=== PATIENT | female | born 1955 | race Caucasian/White ===

== ENCOUNTER → 2016-06-25 | Outpatient (CLI) | payer OTHER ==
[~2016-06-25] MED LIST: CHOL200010 PO; FLUO10CA48 PO; OPTIRAY 320 IV PRN; SYMIN160 INH; TIOTCAP INH; [UNRECOGNIZED DRUG - CODE] PO
--- NOTE | 2016-06-25 07:31 | DIAGNOSTIC IMAGING REPORT ---
CT OF THE CHEST WITH IV CONTRAST CLINICAL HISTORY: Lung carcinoma COMPARISON STUDY: 02/07/2016 TECHNIQUE: Following the IV administration of 91 mL of Optiray-320, CT of the thorax was performed from the thoracic inlet to the lung bases. Images are reviewed in the axial, sagittal, and coronal planes. IV contrast was administered without complication. CT DOSE: 225.54 mGy.cm FINDINGS: Thyroid: Imaged portions of the thyroid gland are normal in appearance. Thoracic aorta: The thoracic aorta is normal in course and caliber, noting standard 3-vessel arch anatomy. No aneurysm or dissection is seen. Pulmonary vasculature: The pulmonary trunk is normal in caliber. There are no central filling defects identified to suggest pulmonary embolus. Note that this examination was not protocoled for the evaluation of pulmonary emboli. HEART: The heart is normal in size and configuration, without pericardial effusion. Lungs and pleural spaces: There is severe pulmonary emphysema. There are postsurgical changes of a left upper lobectomy. Fiducial markings are again evident within the right upper lobe. There is an adjacent area of scar shaped nodularity measuring 28 x 8 mm. This previously measured 26 x 7 mm. There is a stable area of presumed atelectasis at the left lung base. Mediastinum: There is no mediastinal lymphadenopathy. Chante: Clear. Axilla: Clear. Upper abdomen: There is a 9 mm left adrenal gland nodule, likely representing an adenoma. Skeletal structures: There are no lytic or blastic osseous lesions. IMPRESSION: 1. Stable postsurgical changes of the left 2. Severe emphysema 3. No evidence of pathologic adenopathy 4. Persistent area of right upper lobe nodularity adjacent to fiducial markings. This currently measures 28 x 8 mm. This previously measured 26 x 7 mm. Electronically signed by: Lamonte Lyles M.D. 06/25/2016 7:29 AM Dictated Date/Time: 06/25/2016 7:23 AM
== END | disposition home or self-care (01) ==
LOC: C.CTS 06:33
PROVIDERS: ATTEND Internal Medicine Pulmonary Disease
DX: C34.90 Malignant neoplasm of unspecified part of unspecified bronchus or lung (principal); J43.9 Emphysema, unspecified

== ENCOUNTER → 2016-10-10 | Outpatient (CLI) | payer OTHER ==
[~2016-10-10] MED LIST changes: -OPTIRAY 320 IV PRN
--- NOTE | 2016-10-10 11:02 | DIAGNOSTIC IMAGING REPORT ---
CT OF THE CHEST WITHOUT IV CONTRAST CLINICAL HISTORY: Adenocarcinoma of lung. COMPARISON STUDY: Chest CT June 25, 2016 and PET/CT February 28, 2016. CT DOSE: 183.01 mGy.cm TECHNIQUE: Axial images of the chest were obtained without IV contrast. Images were reviewed in the axial, sagittal, and coronal planes. IV contrast was not administered for this examination. FINDINGS: No enlarged axillary, mediastinal or hilar lymph nodes are present. There are stable postoperative findings within the left hemithorax. No pneumothorax or pleural effusion is present. Size the heart is normal. There is no pericardial effusion. Severe emphysema is again noted. A 2.8 x 0.8 cm irregular right apical opacity is similar to exam of June 25, 2016. There are adjacent fiducial markers. The appearance of the chest is unchanged. There are no suspicious osseous lesions. A 1 cm low-attenuation left adrenal nodule is unchanged and shown to represent an adenoma on prior studies. There is fatty infiltration within the liver. A sebaceous cyst within the lower back is noted. IMPRESSION: 1. No significant change in the right apical irregular opacity since prior exam with adjacent fiducial markers. This may reflect post radiation change however continued imaging follow-up is recommended to exclude the possibility of underlying neoplastic process. 2. No change in appearance of the chest with stable postoperative findings with the left hemithorax. 3. Severe emphysema. Electronically signed by: Hemal Cortez M.D. 10/10/2016 11:01 AM Dictated Date/Time: 10/10/2016 10:46 AM
== END | disposition home or self-care (01) ==
LOC: C.CTS 10:34
PROVIDERS: ATTEND Surgery
DX: C34.90 Malignant neoplasm of unspecified part of unspecified bronchus or lung (principal); J43.9 Emphysema, unspecified

== ENCOUNTER → 2017-02-14 | Outpatient (CLI) | payer OTHER ==
--- NOTE | 2017-02-14 08:39 | DIAGNOSTIC IMAGING REPORT ---
CT OF THE CHEST WITHOUT IV CONTRAST CLINICAL HISTORY: Follow up adenocarcinoma. COMPARISON STUDY: Chest CT October 10, 2016 and PET/CT February 28, 2016. CT DOSE: 210.52 mGy.cm TECHNIQUE: Axial images of the chest were obtained without IV contrast. Images were reviewed in the axial, sagittal, and coronal planes. IV contrast was not administered for this examination. A dose lowering technique was utilized adhering to the principles of ALARA. FINDINGS: Stable postoperative findings within the left hemithorax are noted. Severe emphysema is present. A 2.7 x 1.4 cm irregular right apical opacity is noted. The AP extent of this finding has slightly increased since prior exam. Adjacent fiducial markers are noted. Otherwise, the appearance of the chest is unchanged. There are no new pulmonary nodules. No enlarged axillary, mediastinal or hilar lymph nodes are present. A healing posterior right fourth rib fracture is noted. Fatty infiltration of the liver is noted. A left adrenal nodule is unchanged and likely reflects an adenoma. Gallbladder is surgically absent. A sebaceous cyst within the mid back is noted. IMPRESSION: 1. Slight increase in size of the right apical irregular opacity since prior exam. This interval change is nonspecific following radiation therapy and could reflect post radiation change with scarring; however, recurrent tumor could appear similar. 2. Stable postoperative findings within the left hemithorax. 3. Severe emphysema. 4. No thoracic lymphadenopathy. Electronically signed by: Hemal Cortez M.D. 02/14/2017 8:38 AM Dictated Date/Time: 02/14/2017 8:17 AM
== END | disposition home or self-care (01) ==
LOC: C.CTS 07:55
PROVIDERS: ATTEND Surgery
DX: C34.90 Malignant neoplasm of unspecified part of unspecified bronchus or lung (principal); J34.9 Unspecified disorder of nose and nasal sinuses

== ENCOUNTER → 2017-04-18 | Outpatient (CLI) | payer OTHER ==
--- NOTE | 2017-04-21 07:58 | MAMMOGRAPHY REPORT ---
BILATERAL DIGITAL SCREENING MAMMOGRAM TOMOSYNTHESIS WITH CAD: 04/18/2017 CLINICAL HISTORY: Routine screening. Patient has no complaints. TECHNIQUE: Breast tomosynthesis in addition to standard 2D mammography was performed. Current study was also evaluated with a Computer Aided Detection (CAD) system. COMPARISON: Comparison is made to exams dated: 03/20/2016 mammogram, 04/27/2014 mammogram, 05/14/2013 mammogram, 04/30/2013 mammogram, 05/01/2012 mammogram, and 04/27/2012 mammogram - [facility]. BREAST COMPOSITION: There are scattered areas of fibroglandular density in both breasts. FINDINGS: There is a possible small 5 mm mass with associated calcifications in the right upper outer quadrant middle depth, for which spot magnification views, spot compression tomosynthesis views, and possible breast ultrasound are recommended for further evaluation. The remainder of both breasts are stable compared to prior exams, without suspicious masses, calcific ations, or areas of architectural distortion noted. IMPRESSION: ACR BI-RADS CATEGORY 0: INCOMPLETE EVALUATION: NEED ADDITIONAL IMAGING EVALUATION Right breast mass and associated calcifications, for which additional imaging evaluation is recommend ed. The patient will be called to schedule an appointment. Approximately 10% of breast cancers are not detected with mammography. A negative mammographic report should not delay biopsy if a clinically suggestive mass is present. Yadira Peraza M.D. ah/:04/18/2017 17:22:36 Clinical Laboratory Manager: Tamia SANTIAGO(Latoya)(Lavon)(BD), [facility] letter sent: Addl Imaging 0 BI-RADS Code: ACR BI-RADS Category 0: Incomplete Evaluation: Need Additional Imaging Evaluation
== END | disposition home or self-care (01) ==
LOC: C.MAMM 08:40
PROVIDERS: ATTEND Obstetrics & Gynecology
DX: Z12.31 Encounter for screening mammogram for malignant neoplasm of breast (principal); N63.10 Unspecified lump in the right breast, unspecified quadrant; R92.0 Mammographic microcalcification found on diagnostic imaging of breast

== ENCOUNTER → 2017-04-30 | Outpatient (CLI) | payer OTHER ==
--- NOTE | 2017-04-30 13:41 | MAMMOGRAPHY REPORT ---
UNILATERAL RIGHT DIGITAL DIAGNOSTIC MAMMOGRAM AND TARGETED RIGHT ULTRASOUND: 04/30/2017 CLINICAL HISTORY: 61-year-old woman called back from screening mammography for a possible right breas t mass with associated calcification in the upper outer quadrant of the right breast. TECHNIQUE: Spot magnification right CC and ML views; right CC and MLO tomosynthesis images were obta ined after placement of a skin BB. COMPARISON: Comparison is made to exams dated: 04/18/2017 mammogram, 03/20/2016 mammogram, 4 mammogram, 05/14/2013 mammogram, 04/30/2013 mammogram, and 05/01/2012 mammogram - [facility]. BREAST COMPOSITION: The tissue of the right breast is almost entirely fatty. FINDINGS: Spot magnification views of the right breast demonstrate partial effacement of the small 5 mm nodular asymmetry. There are 1-2 persistent microcalcifications in the area of concern, located 4 cm distal to the nipple no associated architectural distortion, other suspicious mass or microcalci fications are identified in the visualized right breast. Targeted ultrasound was performed in the upper outer quadrant of the right breast to assess for the 5 mm nodular asymmetry with associated calcification. In the 9:00 axes, 2 cm from the nipple, there i s a multilobulated hypoechoic and anechoic cystic appearing mass measuring approximately 3.5 x 1.9 x 4.4 mm. This is thought to correlate with the mammographic finding but for confirmation a skin BB wa s placed overlying this sonographic lesion and full Field right CC and MLO tomosynthesis images were performed. The right CC and MLO tomosynthesis images demonstrate alignment of the BB-marker with the focal asymm etry in question, confirming mammographicsonographic correlation. Further characterization with an ultrasound-guided core needle biopsy is recommended, as this could r epresent a complicated cyst, papillary lesion, less likely carcinoma. IMPRESSION: ACR BI-RADS CATEGORY 4: SUSPICIOUS, TARGETED ULTRASOUND ACR BI-RADS CATEGORY 4: SUSPICIO US 1. Ultrasound guided core biopsy is recommended for a 4.5 mm mixed anechoic and hypoechoic mass with associated punctate microcalcification in the 9:00 right breast, which correlates with the mammograp hic finding. These results and recommendations were discussed with the patient at the time of the exam. She tenta tively scheduled the biopsy prior to leaving our department. Approximately 10% of breast cancers are not detected with mammography. A negative mammographic report should not delay biopsy if a clinically suggestive mass is present. Makayla Stout M.D. ay/:04/30/2017 11:59:37 Signal Technician: Ana Paula CAMPO (R)), [facility] letter sent: Abnormal 4/5 BI-RADS Code: ACR BI-RADS Category 4: Suspicious Ultrasound BI-RADS: ACR BI-RADS Category 4: Suspici ous
== END | disposition home or self-care (01) ==
LOC: C.MAMM 10:27
PROVIDERS: ATTEND Nurse Practitioner Women's Health
DX: N63.11 Unspecified lump in the right breast, upper outer quadrant (principal); R92.0 Mammographic microcalcification found on diagnostic imaging of breast

== ENCOUNTER → 2017-05-01 | Outpatient (CLI) | payer OTHER | END | disposition home or self-care (01) | LOC: C.MAMM 13:58 | PROVIDERS: ATTEND Nurse Practitioner Women's Health | DX: M85.89 Other specified disorders of bone density and structure, multiple sites (principal); M81.0 Age-related osteoporosis without current pathological fracture ==

== ENCOUNTER → 2017-05-26 | Outpatient (CLI) | payer OTHER ==
--- NOTE | 2017-05-26 10:13 | Discharge Instructions ---
Discharge Instructions Procedure Procedure Date: May 26, 2017. Reason for visit: Right Mass. Discharge Discharge Date: May 26, 2017. Discharge Diagnosis: post right breast breast ultrasound guided core biopsy Instructions Activity Recommendations: Additional Limitations (see below) Return to School/Work: no limitations Recommended Home Diet: No Limitations Provider Instructions: ACTIVITY RECOMMENDATIONS: * No lifting, pushing, pulling or exercising the affected side for three days. RETURN TO SCHOOL/WORK: * You may return to work/school after the procedure, but do not perform any strenuous activities for 24 to 48 hours. MEDICATIONS: * Tylenol (two 325 mg) every four to six hours if needed for mild pain (if not allergic to Tylenol). DIET: * Resume previous diet. SPECIAL CARE INSTRUCTIONS: * Keep biopsy site dry for 24 hours. May shower after 24 hours, but do not soak (bathe) incision. * May remove Tegaderm (plastic patch) tomorrow AFTER showering. * Leave the steri-strips on for one week. Allow the steri-strips to fall off by themselves. If not off after one week, you may remove them. You may place a Bandaid crosswise over the strips, if desired. * Apply ice 10 minutes on and 10 minutes off as needed. * Wear a bra at bedtime to sleep more comfortably for 2-3 days. * Your referring physician should have the results after approximately 5 to 7 business days. * Call for unusual bleeding, fever, drainage, etc or if you have any questions call [phone] during normal business hours or after hours call Dr Stout, . FOLLOW UP VISIT: Follow-up with Referring Physician as scheduled. Allergies Coded Allergies: No Known Allergies (Unverified , 08/18/15) Karie Yung Recommendations: Call your doctor if: * Temperature above 101 degrees * Pain not relieved by pain medicine ordered * There is increased drainage or redness from any incision * You have any unanswered questions or concerns. Your Doctors Instructions noted above were prepared by provider Makayla Stout. Patient Signature Section: Patient Instructions Signature Page Raphael Brown Patient (or Guardian) Signature/Date: I have read and understand the instructions given to me by my caregivers. Caregiver/RN/Doctor Signature/Date: The above-named patient and/or guardian has received patient instructions on this date. + Original Patient Signature Page (only) stays with chart. Please make copy for patient.
--- NOTE | 2017-05-26 14:41 | MAMMOGRAPHY REPORT ---
ULTRASOUND GUIDED BIOPSY RIGHT BREAST: 05/26/2017 CLINICAL HISTORY: 61-year-old woman presents for biopsy of a 4.5 mm mass with associated microcalcifi cation in the 9:00 right breast. COMPARISON: Comparison is made to exams dated: 04/30/2017 ultrasound, 04/30/2017 mammogram, 04/18/20 17 mammogram, 03/20/2016 mammogram, 04/27/2014 mammogram, and 04/30/2013 mammogram - [facility]. PATIENT CONSENT: The procedure, risks and benefits were discussed with the patient and informed conse nt was obtained both verbally and in writing. Specific risks to this procedure include: bleeding, in fection, puncture of adjacent structure, nontarget biopsy, sampling error, pain, metal allergy and me dication reaction. PROCEDURE DESCRIPTION: A time out was performed and the right breast was agreed as the site of biopsy . The skin was prepped and draped in the usual sterile fashion. The multilobulated mixed isoechoic an d anechoic partially cystic 4.5 mm mass in the 9:00 right breast was chosen as the target for biopsy. Subcutaneous and intraparenchymal 1% buffered lidocaine, with and without epinephrine, was administe red as local anesthesia. A skin incision was made. Through the incision, 4 samples were taken with a 14 gauge Achieve biopsy device. A ribbon shaped metallic marker was placed at the biopsy site. Hemos tasis was achieved after manual compression. The patient tolerated the procedure well and there was n o immediate complication. The samples were sent to the pathology department in an appropriately labe led container. Post procedure right CC and ML tomosynthesis images were obtained. A new ribbon-shaped biopsy marker clip is identified in the 9:00 middle one third of the right breast, correlating with the small 4.5 mm focal asymmetry with associated microcalcification in question. No significant postbiopsy hematom a identified. IMPRESSION: ULTRASOUND GUIDED BIOPSY Status post ultrasound guided core biopsy of a 4.5 mm mixed isoechoic and anechoic mass with associat ed microcalcification in the 9:00 right breast, with biopsy marker placed at the site. The patient will receive notification of the biopsy results from her referring physician. Makayla Stout M.D. ay/:05/26/2017 12:10:46 Audio Director: Jocelyn Monsalve, [facility]
--- NOTE | 2017-05-26 14:43 | MAMMOGRAPHY REPORT ---
UNILATERAL RIGHT DIGITAL DIAGNOSTIC MAMMOGRAM TOMOSYNTHESIS: 05/26/2017 CLINICAL HISTORY: Status post ultrasound-guided core biopsy of a multilobulated partially cystic mass with associated calcifications in the 9:00 right breast. Please refer to the report from right breast ultrasound guided core biopsy performed at the same time for full detail. IMPRESSION: POST PROCEDURE IMAGING FOR MARKER PLACEMENT Please refer to the report from right breast ultrasound guided core biopsy performed at the same time for full detail. Approximately 10% of breast cancers are not detected with mammography. A negative mammographic report should not delay biopsy if a clinically suggestive mass is present. Makayla Stout M.D. ay/:05/26/2017 10:14:14 [employer]al [employer] Counselors: Jocelyn Monsalve, [facility] BI-RADS Code: Post Procedure Imaging For Marker Placement
== END | disposition home or self-care (01) ==
LOC: C.MAMM 09:15
PROVIDERS: ATTEND Nurse Practitioner Women's Health
DX: N63.10 Unspecified lump in the right breast, unspecified quadrant (principal); R92.0 Mammographic microcalcification found on diagnostic imaging of breast; N60.91 Unspecified benign mammary dysplasia of right breast; N60.11 Diffuse cystic mastopathy of right breast

== ENCOUNTER → 2017-07-30 | Outpatient (CLI) | payer OTHER ==
--- NOTE | 2017-07-30 12:27 | DIAGNOSTIC IMAGING REPORT ---
PET/CT SKULL-THIGH CLINICAL HISTORY: C34.90 non-small cell lung carcinoma COMPARISON STUDY: Chest CT dated 02/14/2017, PET/CT dated 02/28/2016 FINDINGS: The patient was injected with 13.3 mCi of F 18 labeled FDG. Following the standard induction phase, PET/CT scanning was performed from the skull base to the upper thigh region. Uptake within neck is felt to be physiologic. Within the chest, there is an 8 mm pleural-based nodule within the medial right lung apex which is mildly FDG avid with SUV maximum of 3.8. Also present within the right upper lobe is an irregular 2.6 cm opacity with adjacent fiducial markers. This is mildly FDG avid with SUV maximum of 2.3. This is nonspecific and could represent postradiation change with scarring. While recurrent tumor cannot be excluded, the lack of significant change, and relatively low FDG activity which favor scarring over neoplasm. Continued close follow-up is advocated There is underlying pulmonary emphysema. There are no additional FDG avid lesions. There are no FDG avid mediastinal hilar or axillary lymph nodes. Within the abdomen, there is physiologic urinary tract and bowel activity. There is no FDG avid adenopathy. There are no FDG avid hepatic or adrenal masses. A small left adrenal nodule remain stable and likely represents an adenoma. There are no FDG avid skeletal lesions. IMPRESSION: 1. Stable (since April 2015) 8 mm pleural-based nodule within the right medial lung apex which is mildly FDG avid with SUV maximum of 3.8 2. Stable (since the prior February 2017 CT scan) irregular 2.6 cm opacity within the right upper lobe with adjacent fiducial markers. This remains minimally FDG avid with SUV maximum of 2.3. 3. No evidence of FDG avid adenopathy 4. Small non-FDG avid left adrenal adenoma. 5. Emphysema Electronically signed by: Lamonte Lyles M.D. 07/30/2017 12:26 PM Dictated Date/Time: 07/30/2017 12:11 PM
== END | disposition home or self-care (01) ==
LOC: C.PET 08:49
PROVIDERS: ATTEND Surgery
DX: C34.91 Malignant neoplasm of unspecified part of right bronchus or lung (principal); J43.9 Emphysema, unspecified

== ENCOUNTER 2020-04-24 14:52 | Inpatient (IN) ==
[2020-04-24 17:56] LABS: Basophils # (auto) 0.02 K/uL (0-0.2); Basophils % (auto) 0.3 %; Eosinophils # (auto) 0.12 K/uL (0-0.5); Eosinophils % (auto) 1.9 %; Hematocrit (blood only) 35.4 % (37-47); Hemoglobin 11.5 g/dL (12.0-16.0); Lymphocytes % (auto) 20.3 %; Mean Corpuscular Hemoglobin 30.6 pg (25-34); Mean Corpuscular Hgb Conc 32.5 g/dL (32-36); Mean Corpuscular Volume 94.1 fL (80-100); Mean Platelet Volume 9.1 fL (7.4-10.4); Monocytes # (auto) 0.65 K/uL (0.11-0.59); Monocytes % (auto) 10.2 %; Neutrophils # (auto) 4.31 K/uL (1.4-6.5); Neutrophils % (auto) 67.3 %; Platelet Count 395 K/uL (130-400); RDW Coefficient of Variation 13.1 % (11.5-14.5); RDW Standard Deviation 45.3 fL (36.4-46.3); Red Blood Count 3.76 M/uL (4.2-5.4)
[2020-04-24] MEDS ORDERED: ALBUTEROL HFA 8 GM INHALER INH ONE (17:57)
[2020-04-24] MEDS ORDERED: DEXAMETHASONE SOD INJ 4 MG/ML VIAL IV STA (17:57)
[2020-04-24 18:03] LABS: INR 1.1 (0.9-1.1); Partial Thromboplastin Ratio 0.9; Partial Thromboplastin Time 23.9 Seconds (21.0-31.0); Prothrombin Time 11.1 Seconds (9.0-12.0)
--- NOTE | 2020-04-24 18:04 | Emergency Department Note ---
Impression & Plan COVID-19, Hypoxia, SOB (shortness of breath) ED Provider Note INFORMANT: Patient ED PROVIDER(S): Stanley Talbot MD CHIEF COMPLAINT: Shortness of breath PLAN: Disposition: Admit Condition: Good MEDICAL DECISION MAKING: Patient presented to the emergency department because of shortness of breath and hypoxia. She was diagnosed with Covid as an outpatient. Chest x-ray was performed and was rather unremarkable. She had a normal ECG. Blood work revealed unremarkable CBC and chemistry panel except for hypokalemia. She was given IV potassium. She received supplemental oxygen, Decadron, and a albuterol MDI. She was feeling better with this. Her D-dimer was mildly elevated. CT imaging does reveal no evidence of thromboembolic disease however she does have a multifocal pneumonia. Consultation was placed with the [facility]. The patient was admitted by Dr. Marcelino Quiroga he did request an additional Covid test to be performed for confirmation. Triage Nursing notes reviewed and agree them. Vital Signs: reviewed and remarkable for hypoxia. Differential diagnosis: COVID-19, reactive airway disease, pneumonia, pneumothorax, COPD, CHF, infections, cardiac ischemia, pulmonary embolism, musculoskeletal, g astrointestinal, as well as other pathologies. Diagnostics interpreted by me: ECG: Rate:67 Rhythm:Normal sinus Hoyt:Normal QRS:Normal ST segements:No elevation or depression Other:No PACs or PVCs Cardiac Monitoring: None Imaging studies: Chest x-ray unremarkable for acute process. CT PE study is negative for embolism. Multifocal pneumonia seen. I refer you to the EMR for further imaging details. Consultation[facility] HPI: The patient is a 64 year old female who presents to the Emergency Room with complaints of SOB. This started a week ago and is worsening. The patient also notes the following associated symptoms, chest tightness but no pain. The patient has found no relieving factors. Current pain is rated as 0/10. Patient states she was diagnosed with COVID-19 this week. She has a history of lung cancer. She is not on oxygen at home. She measured her pulse oximetry and it was 77%. She called her primary office and was directed to the ER. Pt denies LOC, headache, fevers, chills, diaphoresis, visual changes, neck pain, chest pain, breathing difficulties, nausea, vomiting, abdominal pain, back pain, melena, hematochezia, urinary symptoms, numbness, weakness, lymphadenopathy, rash, or other complaints. ROS: See above HPI for pertinent positives & negatives. A total of 10 systems reviewed and were otherwise negative. PAST MEDICAL HISTORY:See Below, lung cancer PAST SURGICAL HISTORY:See Below, resection of tumor, right lung FAMILY HISTORY:See Below SOCIAL HISTORY:See Below, HOME MEDICATIONS:See Below ALLERGIES:See Below VITALS:See Below PHYSICAL EXAMINATION: GENERAL: Awake, tired-appearing, in no distress HENT: Normocephalic, atraumatic. Oropharynx unremarkable. EYES: Normal conjunctiva. Sclera non-icteric. NECK: Inspection normal. Non-tender. Supple. No nuchal rigidity. FROM. No masses. RESPIRATORY: Clear to auscultation. No wheezes. No rales. Mild increased respiratory effort. CARDIAC: Normal rate. Normal rhythm. No murmurs. No rubs. Extremities warm and well perfused. Pulses equal. No JVD. GI: Soft, non-distended. No tenderness to palpation. No rebound or guarding. No masses. RECTAL: Deferred. MUSCULOSKELETAL: Atraumatic. Chest examination reveals no tenderness. The back is symmetrical on inspection without obvious abnormality. There is no CVA tenderness to palpation. No joint edema. LOWER EXTREMITIES: Calves are equal size bilaterally and non-tender. No edema. No discoloration. NEURO: Normal sensorium. No sensory or motor deficits noted. SKIN: No rash or jaundice noted. ED COURSE: Critical Care: None Stanley Talbot MD Past Med/Surg History Medical History (Updated 04/24/20 @ 18:00 by Stanley Talbot MD) Adenocarcinoma of lung Chronic bronchitis COPD (chronic obstructive pulmonary disease) COPD with emphysema Dysfunction of eustachian tube Pulmonary nodule SOB (shortness of breath) Vertigo Surgical History (Updated 10/19/19 @ 08:15 by Brittni Doyle, THERESA) History of laparoscopic cholecystectomy History of lobectomy of lung Family History (Updated 10/19/19 @ 08:21 by Brittni Doyle, THERESA) Family/Other Carcinoma of lung Mother Coronary heart disease Father , age 70s throat cancer No problems noted. Sister No problems noted. Sister No problems noted. Brother , age 54 lung cancer No problems noted. Son No problems noted. Social History (Updated 10/19/19 @ 08:19 by Brittni Doyle RN) Smoking Status: Never smoker Age Started Using Tobacco: 16; Age Quit Using Tobacco: 54; packs per day: 1; Years Smoked: 35; Number of Years Since Quit: 8; Second Hand Exposure: Yes; Hx Alcohol Use: Yes Alcohol type: beer Hx Substance Use: No Preferred Language: Chilean Communication Ability: Effective Beliefs That Will Affect Care: None marital status: Current Living Situation: Spouse current occupational status: retired current occupation: [employer] Feels Safe at Home: Yes Childhood Exposure to Second-Hand Smoke: Yes caffeine: Yes (2 cups per day) during the past year weight has: remained stable Dental Care, Regularly: Yes Physical Activity Frequency: 1-2 Times per Week Seatbelt Use: always Sunscreen Use: Yes Allergies Allergies Allergy/AdvReac Type Severity Reaction Status Date / Time No Known Allergies Allergy Verified 04/24/20 19:20 Home Meds Home Medications Medication Instructions Recorded Confirmed multivitamin 1 tab PO DAILY 01/07/19 04/24/20 cholecalciferol (vitamin D3) 50 50 mcg PO BID cap 10/19/19 04/24/20 mcg (2,000 unit) capsule garlic 1,000 mg capsule 1,000 mg PO DAILY 10/19/19 04/24/20 meclizine 12.5 mg tablet 12.5 mg PO TID PRN tab 10/19/19 04/24/20 omeprazole 20 mg capsule,delayed 20 mg PO DAILY 10/19/19 04/24/20 release fluoxetine 10 mg capsule 10 mg PO DAILY 04/12/20 04/24/20 Previous Rx's Medication Instructions Recorded albuterol sulfate 90 mcg/actuation 1 puffs INH Q6H PRN #18 gm 10/11/19 aerosol inhaler fluticasone furoate 200 1 inh INH DAILY #3 inhaler 03/22/20 mcg-vilanterol 25 mcg/dose inhalation powder tiotropium bromide 2.5 2 puff INH DAILY #3 inhaler 03/22/20 mcg/actuation mist for inhalation Results & Data (ED) Vital Signs Vital Signs - 24 hr 04/24/20 14:57 04/24/20 17:12 04/24/20 17:18 Temperature 36.4 C L Temperature Source Temporal Artery Scan Pulse Rate 90 73 Pulse Rate from SpO2 Sensor 74 Respiratory Rate 20 12 Blood Pressure 122/79 Blood Pressure Mean 93 Pulse Oximetry 89 L 94 94 Oxygen Delivery Method Room Air Room Air Room Air Oxygen Flow Rate Sepsis Recent Fever Within 48 Hours No Sepsis New/Unexplained Change in Mental Status N/A Sepsis Action Taken by Nursing No Action Required 04/24/20 17:30 04/24/20 17:37 04/24/20 18:00 Temperature Temperature Source Pulse Rate 73 68 64 Pulse Rate from SpO2 Sensor 73 68 65 Respiratory Rate 17 18 20 Blood Pressure 116/65 126/71 Blood Pressure Mean 76 85 Pulse Oximetry 92 96 98 Oxygen Delivery Method Room Air Nasal Cannula Nasal Cannula Oxygen Flow Rate 1 1 Sepsis Recent Fever Within 48 Hours Sepsis New/Unexplained Change in Mental Status Sepsis Action Taken by Nursing 04/24/20 18:30 04/24/20 19:00 04/24/20 19:30 Temperature Temperature Source Pulse Rate 67 65 67 Pulse Rate from SpO2 Sensor 66 65 66 Respiratory Rate 16 18 22 Blood Pressure 105/64 122/66 Blood Pressure Mean 74 77 Pulse Oximetry 96 97 96 Oxygen Delivery Method Nasal Cannula Nasal Cannula Nasal Cannula Oxygen Flow Rate 1 1 1 Sepsis Recent Fever Within 48 Hours Sepsis New/Unexplained Change in Mental Status Sepsis Action Taken by Nursing 04/24/20 19:31 04/24/20 20:52 04/24/20 21:00 Temperature Temperature Source Pulse Rate 65 75 73 Pulse Rate from SpO2 Sensor 65 75 74 Respiratory Rate 20 21 22 Blood Pressure 120/62 115/61 122/64 Blood Pressure Mean 71 77 80 Pulse Oximetry 96 97 98 Oxygen Delivery Method Nasal Cannula Oxygen Flow Rate 1 Sepsis Recent Fever Within 48 Hours Sepsis New/Unexplained Change in Mental Status Sepsis Action Taken by Nursing Laboratory Data Result diagrams: 04/24/20 17:36 04/24/20 17:36 Lab Results 04/24/20 04/24/20 04/24/20 Range/Units 17:36 17:36 17:36 WBC (4.8-10.8) K/uL RBC (4.2-5.4) M/uL Hgb (12.0-16.0) g/dL Hct (37-47) % MCV (80-100) fL MCH (25-34) pg MCHC (32-36) g/dL RDW Std Deviation (36.4-46.3) fL RDW Coeff of Raza (11.5-14.5) % Plt Count (130-400) K/uL MPV (7.4-10.4) fL Immature Gran % (Auto) % Neut % (Auto) % Lymph % (Auto) % Maverick % (Auto) % Eos % (Auto) % Baso % (Auto) % Neut # (Auto) (1.4-6.5) K/uL Lymph # (Auto) (1.2-3.4) K/uL Maverick # (Auto) (0.11-0.59) K/uL Eos # (Auto) (0-0.5) K/uL Baso # (Auto) (0-0.2) K/uL Immature Gran # (Auto) (0.00-0.02) K/uL PT 11.1 (9.0-12.0) Seconds INR 1.1 (0.9-1.1) APTT 23.9 (21.0-31.0) Seconds PTT Ratio 0.9 D-Dimer 540 H* (0-500) ug/L FEU Sodium 140 (136-145) mmol/L Potassium 2.9 L (3.5-5.1) mmol/L Chloride 102 (98-107) mmol/L Carbon Dioxide 30 (21-32) mmol/L Anion Gap 8.0 (3-11) BUN 15 (7-18) mg/dl Creatinine 0.59 L (0.6-1.2) mg/dl Est Cr Clr Drug Dosing 84.3 ml/min Est GFR ( Amer) 113.1 Est GFR (Non-Af Amer) 97.5 BUN/Creatinine Ratio 25.0 H (10-20) Glucose 85 (70-99) mg/dl Lactate (0.4-2.0) mmol/L Calcium 9.1 (8.5-10.1) mg/dl Total Bilirubin 0.5 (0.2-1) mg/dl AST 68 H (15-37) U/L ALT 74 (12-78) U/L Alkaline Phosphatase 103 (45-117) U/L Troponin I < 0.015 (0-0.045) ng/ml Total Protein 7.9 (6.4-8.2) gm/dl Albumin 3.1 L (3.4-5.0) gm/dl Globulin 4.8 H (2.5-4.0) gm/dl Albumin/Globulin Ratio 0.6 L (0.9-2) Urine Color Urine Appearance (Clear) Urine pH (4.5-7.5) Ur Specific Boley (1.000-1.030) Urine Protein (Negative) Urine Glucose (UA) (Negative) Urine Ketones (Negative) Urine Blood (Negative) Urine Nitrite (Negative) Urine Bilirubin (Negative) Urine Urobilinogen (Negative) Ur Leukocyte Esterase (Negative) Urine WBC (Auto) (0-5) /hpf Urine RBC (Auto) (0-4) /hpf U Hyaline Cast (Auto) (0-5) /lpf U Epithel Cells (Auto) (0-5) /lpf Urine Bacteria (Auto) (Negative) Ur Renal Epithelial Cell Urine Mucus (None Prsent) Blood Type A Positive Antibody Screen NEGATIVE 04/24/20 04/24/20 04/24/20 Range/Units 17:36 17:36 19:54 WBC 6.40 (4.8-10.8) K/uL RBC 3.76 L (4.2-5.4) M/uL Hgb 11.5 L (12.0-16.0) g/dL Hct 35.4 L (37-47) % MCV 94.1 (80-100) fL MCH 30.6 (25-34) pg MCHC 32.5 (32-36) g/dL RDW Std Deviation 45.3 (36.4-46.3) fL RDW Coeff of Raza 13.1 (11.5-14.5) % Plt Count 395 (130-400) K/uL MPV 9.1 (7.4-10.4) fL Immature Gran % (Auto) 0.0 % Neut % (Auto) 67.3 % Lymph % (Auto) 20.3 % Maverick % (Auto) 10.2 % Eos % (Auto) 1.9 % Baso % (Auto) 0.3 % Neut # (Auto) 4.31 (1.4-6.5) K/uL Lymph # (Auto) 1.30 (1.2-3.4) K/uL Maverick # (Auto) 0.65 H (0.11-0.59) K/uL Eos # (Auto) 0.12 (0-0.5) K/uL Baso # (Auto) 0.02 (0-0.2) K/uL Immature Gran # (Auto) 0.00 (0.00-0.02) K/uL PT (9.0-12.0) Seconds INR (0.9-1.1) APTT (21.0-31.0) Seconds PTT Ratio D-Dimer (0-500) ug/L FEU Sodium (136-145) mmol/L Potassium (3.5-5.1) mmol/L Chloride (98-107) mmol/L Carbon Dioxide (21-32) mmol/L Anion Gap (3-11) BUN (7-18) mg/dl Creatinine (0.6-1.2) mg/dl Est Cr Clr Drug Dosing ml/min Est GFR ( Amer) Est GFR (Non-Af Amer) BUN/Creatinine Ratio (10-20) Glucose (70-99) mg/dl Lactate 1.4 (0.4-2.0) mmol/L Calcium (8.5-10.1) mg/dl Total Bilirubin (0.2-1) mg/dl AST (15-37) U/L ALT (12-78) U/L Alkaline Phosphatase (45-117) U/L Troponin I (0-0.045) ng/ml Total Protein (6.4-8.2) gm/dl Albumin (3.4-5.0) gm/dl Globulin (2.5-4.0) gm/dl Albumin/Globulin Ratio (0.9-2) Urine Color Dark Yellow Urine Appearance Clear (Clear) Urine pH 5.5 (4.5-7.5) Ur Specific Boley 1.031 H (1.000-1.030) Urine Protein Trace H (Negative) Urine Glucose (UA) Negative (Negative) Urine Ketones 3+ H (Negative) Urine Blood Negative (Negative) Urine Nitrite Negative (Negative) Urine Bilirubin Negative (Negative) Urine Urobilinogen Negative (Negative) Ur Leukocyte Esterase Negative (Negative) Urine WBC (Auto) 5-10 H (0-5) /hpf Urine RBC (Auto) 0-4 (0-4) /hpf U Hyaline Cast (Auto) 10-30 H (0-5) /lpf U Epithel Cells (Auto) >30 H (0-5) /lpf Urine Bacteria (Auto) Negative (Negative) Ur Renal Epithelial Cell Not Reportable Urine Mucus Present A (None Prsent) Blood Type Antibody Screen Administered Medications Discontinued Medications Albuterol (Albuterol Hfa 8 Gm Inhaler) 6 puffs INH NOW ONE Stop: 04/24/20 17:58 Last Admin: 04/24/20 19:42 Dose: 6 puffs Documented by: [id number] Dexamethasone (Dexamethasone Sod Inj 4 Mg/Ml Vial) 6 mg IV NOW STA Stop: 04/24/20 17:58 Last Admin: 04/24/20 19:42 Dose: 6 mg Documented by: [id number] Potassium Chloride (K Eugenio / Wtr) 10 meq in 100 mls @ 100 mls/hr IV ONE ONE Stop: 04/24/20 20:05 Last Infusion: 04/24/20 20:55 Dose: 100 mls/hr Documented by: [id number] Infusion: 04/24/20 19:47 Dose: 0 mls/hr Documented by: [id number] Admin: 04/24/20 19:47 Dose: 100 mls/hr Documented by: [id number] Ioversol (Optiray 320 125ml) 119 ml IV ONCE ONE Stop: 04/24/20 19:16 Last Admin: 04/24/20 19:16 Dose: 119 ml Documented by: [id number] Potassium Chloride (Potassium Chloride Crtab 20 Meq Tabcr) 20 meq PO NOW STA Stop: 04/24/20 19:07 Last Admin: 04/24/20 19:46 Dose: 20 meq Documented by: [id number] Discharge Plan Visit Data Chief Complaint: Shortness of Breath/Dyspnea Stated Complaint: COVID +, SOB ED Provider: Stanley Talbot Discharge Problem: COVID-19, Hypoxia, SOB (shortness of breath) Forms Stand Alone Forms: [facility] [employer] Prescriptions Prescriptions: No Action cholecalciferol (vitamin D3) 50 mcg (2,000 unit) capsule 50 mcg PO BID RF: 0 garlic 1,000 mg capsule 1,000 mg PO DAILY RF: 0 omeprazole 20 mg capsule,delayed release(DR/EC) 20 mg PO DAILY RF: 0 meclizine 12.5 mg tablet 12.5 mg PO TID PRN (Reason: dizzyness) RF: 0 fluoxetine 10 mg capsule 10 mg PO DAILY RF: 0 Breo Ellipta 200-25 mcg/dose blister with device 1 inh INH DAILY Qty: 3 RF: 1 Spiriva Respimat 2.5 mcg/actuation mist 2 puff INH DAILY Qty: 3 RF: 1 multivitamin tablet 1 tab PO DAILY RF: 0 albuterol sulfate [Ventolin HFA] 90 mcg/actuation HFA aerosol inhaler 1 puffs INH Q6H PRN (Reason: shortness of breath or wheezing) Qty: 18 RF: 3
[2020-04-24 18:10] LABS: Alanine Aminotransferase 74 U/L (12-78); Albumin Level 3.1 gm/dl (3.4-5.0); Aspartate Aminotransferase 68 U/L (15-37); Blood Urea Nitrogen 15 mg/dl (7-18); Calcium 9.1 mg/dl (8.5-10.1); Carbon Dioxide 30 mmol/L (21-32); Chloride 102 mmol/L (98-107); Creatinine Clr Calc Pharmacy 84.3 ml/min; Est GFR (African American) 113.1; Est GFR (Non-African American) 97.5; Glucose 85 mg/dl (70-99); Potassium 2.9 mmol/L (3.5-5.1); Sodium 140 mmol/L (136-145)
[2020-04-24 18:15] LABS: Albumin Globulin Ratio 0.6 (0.9-2); Alkaline Phosphatase 103 U/L (45-117); Bilirubin,Total 0.5 mg/dl (0.2-1); Globulin 4.8 gm/dl (2.5-4.0); Total Protein 7.9 gm/dl (6.4-8.2); Troponin I < 0.015 ng/ml (0-0.045)
--- NOTE | 2020-04-24 18:16 | XRay Report ---
XR chest 1V portable CLINICAL HISTORY: Dyspnea COMPARISON STUDY: May 2014, CT scan dated 03/21/2020 FINDINGS: Postsurgical changes remain similar to the prior study. There is pulmonary emphysema. There is no failure. There is no focal pulmonary consolidation. There are no pleural effusions.[There is a subcentimeter right apical pulmonary nodule. IMPRESSION: No acute intrathoracic findings. ACT 112: Negative or not required by law. Electronically signed by: Lamonte Lyles M.D. 04/24/2020 6:15 PM
[2020-04-24 18:53] LABS: D Dimer 540 ug/L FEU (0-500)
[2020-04-24] MEDS ORDERED: POTASSIUM CHLORIDE / WTR 10 MEQ/100 ML PLCT IV ONE (19:06)
[2020-04-24] MEDS ORDERED: POTASSIUM CHLORIDE CRTAB 20 MEQ TABCR PO STA (19:06)
[2020-04-24] MEDS ORDERED: OPTIRAY 320 125ml IV ONE (19:15)
[2020-04-24 20:13] LABS: Appearance Urine Clear (Clear); Bacteria Urine Automated Negative (Negative); Blood Urine Negative (Negative); Color Urine Dark Yellow; Epithelial Cell Urine Auto >30 /lpf (0-5); Glucose Urine UA Negative (Negative); Ketones Urine 3+ (Negative); Leukocyte Esterase Urine Negative (Negative); Nitrite Urine Negative (Negative); Protein Urine Trace (Negative); RBC Urine Automated 0-4 /hpf (0-4); Specific Gravity Urine 1.031 (1.000-1.030); Urobilinogen Urine Negative (Negative); pH Urine 5.5 (4.5-7.5)
[2020-04-24 20:31] LABS: Bilirubin Urine Negative (Negative); Ictotest Urine Negative (Negative)
--- NOTE | 2020-04-24 20:41 | History & Physical Report ---
Date of Service April 24, 2020 Assessment & Plan (1) Pneumonia due to COVID-19 virus: Place on dexamethasone 6 mg IV every morning. Ventolin HFA 2 puffs 4 times daily, every 2 hours as needed Zinc sulfate 2020 mg p.o. 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 Present on Admission?: Yes (4) Depression: Continue fluoxetine Present on Admission?: Yes (5) GERD (gastroesophageal reflux disease): Change omeprazole to pantoprazole Present on Admission?: Yes (6) Vertigo: Continue as needed meclizine Present on Admission?: Yes (7) COPD with emphysema: See above Present on Admission?: Yes History of Present Illness Chief Complaint: Patient presents to the emergency department with complaint of shortness of breath and generalized fatigue. Primary Care Provider: Shayan Omer MD The patient is a 64-year-old female with a past medical history including primary cancer of right upper lobe of lung, COPD, depression, vertigo and GERD. Her symptoms began approximately 10 days ago, and she had initial testing performed that was COVID-19 PCR positive on 04/17/2020. Repeat RNA, NAAT testing was positive in the ED tonight. Pulse oximetry was noted to be 89% on room air, and CTA scan of chest that was performed due to high positive D-dimer, as it was negative for PE, but did show multifocal pneumonia. Allergies Allergy/AdvReac Type Severity Reaction Status Date / Time No Known Allergies Allergy Verified 04/24/20 19:20 Home Medications Medication Instructions Recorded Confirmed Type multivitamin 1 tab PO DAILY 01/07/19 04/24/20 History albuterol sulfate 90 mcg/actuation 1 puffs INH Q6H PRN #18 gm 10/11/19 04/24/20 Rx aerosol inhaler cholecalciferol (vitamin D3) 50 50 mcg PO BID cap 10/19/19 04/24/20 History mcg (2,000 unit) capsule garlic 1,000 mg capsule 1,000 mg PO DAILY 10/19/19 04/24/20 History meclizine 12.5 mg tablet 12.5 mg PO TID PRN tab 10/19/19 04/24/20 History omeprazole 20 mg capsule,delayed 20 mg PO DAILY 10/19/19 04/24/20 History release fluticasone furoate 200 1 inh INH DAILY #3 inhaler 03/22/20 04/24/20 Rx mcg-vilanterol 25 mcg/dose inhalation powder tiotropium bromide 2.5 2 puff INH DAILY #3 inhaler 03/22/20 04/24/20 Rx mcg/actuation mist for inhalation fluoxetine 10 mg capsule 10 mg PO DAILY 04/12/20 04/24/20 History Past Med/Surg History Medical History (Updated 04/25/20 @ 02:37 by Marcelino Quiroga MD) Adenocarcinoma of lung Chronic bronchitis COPD (chronic obstructive pulmonary disease) COPD with emphysema Dysfunction of eustachian tube GERD (gastroesophageal reflux disease) Pulmonary nodule SOB (shortness of breath) Vertigo Surgical History (Updated 10/19/19 @ 08:15 by Brittni Doyle RN) History of laparoscopic cholecystectomy History of lobectomy of lung Family History (Updated 10/19/19 @ 08:21 by Brittni Doyle RN) Family/Other Carcinoma of lung Mother Coronary heart disease Father , age 70s throat cancer No problems noted. Sister No problems noted. Sister No problems noted. Brother , age 54 lung cancer No problems noted. Son No problems noted. 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 Beliefs That Will Affect Care: None marital status: Current Living Situation: Spouse current occupational status: retired current occupation: [employer] Feels Safe at Home: Yes Childhood Exposure to Second-Hand Smoke: Yes caffeine: Yes (2 cups per day) during the past year weight has: remained stable Dental Care, Regularly: Yes Physical Activity Frequency: 1-2 Times per Week Seatbelt Use: always Sunscreen Use: Yes Assistive Devices: None Review of Systems Review of Systems: The patient denies chest pain, palpitations, cough, lower extremity swelling, sore throat, fevers, chills, sweats, nausea, vomiting, diarrhea , constipation, abdominal pain, pelvic pain, blood in urine or stool, dysuria, urinary frequency or urgency, lightheadedness, dizziness, headache, memory loss, loss of consciousness, rash, abnormal bruising or bleeding, imbalance, focal weakness, numbness or tingling in arms or legs, generalized arthralgias or myalgias, back or neck pain, or night sweats. The review of systems is otherwise negative other than for that already noted above, and at least 10 systems have been reviewed. Physical Exam Physical Exam: The patient is awake, alert and oriented 3, well developed and well nourished, normocephalic and atraumatic, lying in bed and in no acute distress. HEENT--PERRL, EOMI, mucous membranes and oropharynx normal. Neck--supple. No JVD. No bruits. Thyroid normal, trachea midline, no adenopathy. Heart--normal S1 and S2. No murmurs, rubs or gallops. Lungs--coarse breath sounds bilaterally. No respiratory distress, no accessory muscle use. Abdomen--normal bowel sounds and soft. Nontender. Nondistended, no hernias or masses, no organomegaly. Extremities--no cyanosis or clubbing. No edema. Dermatologic--normal skin turgor, normal color, no abnormal lymph nodes, no rash. Neurologic--cranial nerves II through XII grossly intact. Rheumatologic--normal range of motion. Psychiatric--normal affect. Results & Data Results & Data ([facility]) Vital Signs (Past 12 Hours) Vital Signs Temp Pulse Resp BP Pulse Ox 04/24/20 19:31 65 20 120/62 96 04/24/20 19:30 67 22 96 04/24/20 19:00 65 18 122/66 97 04/24/20 18:30 67 16 105/64 96 04/24/20 18:00 64 20 126/71 98 04/24/20 17:37 68 18 116/65 96 04/24/20 17:30 73 17 92 04/24/20 17:18 94 04/24/20 17:12 73 12 94 12/21/20 14:57 97.5 F L 90 20 122/79 89 L Laboratory Results Laboratory Results WBC 6.40 K/uL (4.8-10.8) 04/24/20 17:36 RBC 3.76 M/uL (4.2-5.4) L 04/24/20 17:36 Hgb 11.5 g/dL (12.0-16.0) L 04/24/20 17:36 Hct 35.4 % (37-47) L 04/24/20 17:36 MCV 94.1 fL (80-100) 04/24/20 17:36 MCH 30.6 pg (25-34) 04/24/20 17:36 MCHC 32.5 g/dL (32-36) 04/24/20 17:36 RDW Std Deviation 45.3 fL (36.4-46.3) 04/24/20 17:36 RDW Coeff of Raza 13.1 % (11.5-14.5) 04/24/20 17:36 Plt Count 395 K/uL (130-400) 04/24/20 17:36 MPV 9.1 fL (7.4-10.4) 04/24/20 17:36 Immature Gran % (Auto) 0.0 % 04/24/20 17:36 Neut % (Auto) 67.3 % 04/24/20 17:36 Lymph % (Auto) 20.3 % 04/24/20 17:36 Mckenzie % (Auto) 10.2 % 04/24/20 17:36 Eos % (Auto) 1.9 % 04/24/20 17:36 Baso % (Auto) 0.3 % 04/24/20 17:36 Neut # (Auto) 4.31 K/uL (1.4-6.5) 04/24/20 17:36 Lymph # (Auto) 1.30 K/uL (1.2-3.4) 04/24/20 17:36 Mckenzie # (Auto) 0.65 K/uL (0.11-0.59) H 04/24/20 17:36 Eos # (Auto) 0.12 K/uL (0-0.5) 04/24/20 17:36 Baso # (Auto) 0.02 K/uL (0-0.2) 04/24/20 17:36 Immature Gran # (Auto) 0.00 K/uL (0.00-0.02) 04/24/20 17:36 PT 11.1 Seconds (9.0-12.0) 04/24/20 17:36 INR 1.1 (0.9-1.1) 04/24/20 17:36 APTT 23.9 Seconds (21.0-31.0) 04/24/20 17:36 PTT Ratio 0.9 04/24/20 17:36 D-Dimer 540 ug/L FEU (0-500) H* 04/24/20 17:36 Sodium 140 mmol/L (136-145) 04/24/20 17:36 Potassium 2.9 mmol/L (3.5-5.1) L 04/24/20 17:36 Chloride 102 mmol/L (98-107) 04/24/20 17:36 Carbon Dioxide 30 mmol/L (21-32) 04/24/20 17:36 Anion Gap 8.0 (3-11) 04/24/20 17:36 BUN 15 mg/dl (7-18) 04/24/20 17:36 Creatinine 0.59 mg/dl (0.6-1.2) L 04/24/20 17:36 Est Cr Clr Drug Dosing 84.3 ml/min 04/24/20 17:36 Est GFR ( Amer) 113.1 04/24/20 17:36 Est GFR (Non-Af Amer) 97.5 04/24/20 17:36 BUN/Creatinine Ratio 25.0 (10-20) H 04/24/20 17:36 Glucose 85 mg/dl (70-99) 04/24/20 17:36 Lactate 1.4 mmol/L (0.4-2.0) 04/24/20 17:36 Calcium 9.1 mg/dl (8.5-10.1) 04/24/20 17:36 Total Bilirubin 0.5 mg/dl (0.2-1) 04/24/20 17:36 AST 68 U/L (15-37) H 04/24/20 17:36 ALT 74 U/L (12-78) 04/24/20 17:36 Alkaline Phosphatase 103 U/L (45-117) 04/24/20 17:36 Troponin I < 0.015 ng/ml (0-0.045) 04/24/20 17:36 Total Protein 7.9 gm/dl (6.4-8.2) 04/24/20 17:36 Albumin 3.1 gm/dl (3.4-5.0) L 04/24/20 17:36 Globulin 4.8 gm/dl (2.5-4.0) H 04/24/20 17:36 Albumin/Globulin Ratio 0.6 (0.9-2) L 04/24/20 17:36 Urine Color Dark Yellow 04/24/20 19:54 Urine Appearance Clear (Clear) 04/24/20 19:54 Urine pH 5.5 (4.5-7.5) 04/24/20 19:54 Ur Specific [place] 1.031 (1.000-1.030) H 04/24/20 19:54 Urine Protein Trace (Negative) H 04/24/20 19:54 Urine Glucose (UA) Negative (Negative) 04/24/20 19:54 Urine Ketones 3+ (Negative) H 04/24/20 19:54 Urine Blood Negative (Negative) 04/24/20 19:54 Urine Nitrite Negative (Negative) 04/24/20 19:54 Urine Bilirubin Negative (Negative) 04/24/20 19:54 Urine Urobilinogen Negative (Negative) 04/24/20 19:54 Ur Leukocyte Esterase Negative (Negative) 04/24/20 19:54 Urine WBC (Auto) 5-10 /hpf (0-5) H 04/24/20 19:54 Urine RBC (Auto) 0-4 /hpf (0-4) 04/24/20 19:54 U Hyaline Cast (Auto) 10-30 /lpf (0-5) H 04/24/20 19:54 U Epithel Cells (Auto) >30 /lpf (0-5) H 04/24/20 19:54 Urine Bacteria (Auto) Negative (Negative) 04/24/20 19:54 Ur Renal Epithelial Cell Not Reportable 04/24/20 19:54 Urine Mucus Present (None Prsent) A 04/24/20 19:54 [facility]19 [facility] 04/24/20 21:38 Hepatitis C Ab Screen Neg (Neg) 04/24/20 17:36 SARS-CoV-2, RNA, NAAT POSITIVE (NEGATIVE) A* 04/24/20 21:38 Blood Type A Positive 04/24/20 17:36 Antibody Screen NEGATIVE 04/24/20 17:36 Diagnostic Findings [facility], [id number] XRay Report Patient: ANNETTE MACIAS AAdmit Date: 04/24/20MR#: [id number]: [address] BLVDAcct ID:[id number]: Date: 1955[facility] Zip: [place], [place] [address]Fht: 64Location: EDSex: FRoom/Bed:Att Phy:Diagnosis: COVID +, SOBPri Phy: Shayan Omer MDService Date: 04/24/20Fam Phy:Interpreting Phy: Lamonte Lyles MDAdmit Phy: Ordering Phy: Stanley Talbot MD cc: ~ XR chest 1V portable CLINICAL HISTORY: Dyspnea COMPARISON STUDY: May 2014, CT scan dated 03/21/2020 FINDINGS: Postsurgical changes remain similar to the prior study. There is pulmonary emphysema. There is no failure. There is no focal pulmonary consolidation. There are no pleural effusions.[There is a subcentimeter right apical pulmonary nodule. IMPRESSION: No acute intrathoracic findings. ACT 112: Negative or not required by law. Electronically signed by: Lamonte Lyles M.D. 04/24/2020 6:15 PM Dictated: 04/24/201812Transcribed: 04/24/20 1813 [facility], [id number] CT Scan Report Patient: ANNETTE MACIAS AAdmit Date: 04/24/20MR#: [id number]: [address] BLVDAcct ID:[id number]: Date: 1955[facility] Zip: [place] [address]Tix: 64Location: EDSex: FRoom/Bed:Att Phy:Diagnosis: COVID +, SOBPri Phy: Shayan Omer MDService Date: 04/24/20Fam Phy:Interpreting Phy: Lamonte Lyles MDAdmit Phy: Ordering Phy: Stanley Talbot MD cc: ~ CT ANGIOGRAM OF THE CHEST CLINICAL HISTORY: Shortness of breath, hypoxia. Possible pulmonary embolism. Covid positive patient COMPARISON STUDY: 03/21/2020 TECHNIQUE: Following the IV administration of 119 mL of Optiray-320, CT angiogram of the thorax was performed from the thoracic inlet to the lung bases utilizing the pulmonary embolus protocol. Images are reviewed in the axial, sagittal, and coronal planes. IV contrast was administered without complication. MIP imaging was performed. A dose lowering technique was utilized adhering to the principles of ALARA. CT DOSE: 404.27 mGycm FINDINGS: There is mild hepatic steatosis. There are borderline enlarged mediastinal and hilar lymph nodes, likely reactive. The ascending thoracic aorta measures 28 mm. Pulmonary to opacification is somewhat less than optimal. There are no pulmonary artery filling defects to indicate acute pulmonary embolism. No pleural effusions are visualized. There is pulmonary emphysema. There are postsurgical changes of a right upper lobectomy. There is a persistent 25 x 9 mm right upper lung zone opacity containing central fiducial markers. There is a stable 1 cm pleural-based opa city within the right medial lung apex. Since the prior study the patient has developed subtle peripheral lower lobe groundglass opacities suspicious for a multifocal pneumonia. There is also a new 1 cm right apical nodule, likely infectious/inflammatory IMPRESSION: 1. Suboptimal pulmonary arterial opacification but no evidence of acute pulmonary embolism 2. Postsurgical changes are prior left upper lobectomy 3. Pulmonary emphysema 4. Interval development of subtle peripheral lower lobe groundglass opacity suspicious for a multifocal pneumonia 5. Stable right upper lobe nodules ACT 112: Negative or not required by law. Electronically signed by: Lamonte Lyles M.D. 04/24/2020 8:45 PM Dictated: 04/24/202037Transcribed: 04/24/202044 Code Status & VTE Plan Code Status Full code VTE Prophylaxis Plan VTE Prophylaxis will be ordered: Yes PG Care Time/CCT Total # of Minutes Spent Total Time Spent with Patient: Total time spent is greater than 50% in senior marketing coordinator rdination of care (as documented) at patient's floor/unit and/or counseling patient: Coding Level of Care Code 57901 Initial Inpt Care Lvl 3 Diagnoses Pneumonia due to COVID-19 virus U07.1; J12.89 Hypoxia R09.02 Primary cancer of right upper lobe of lung C34.11 Depression F32.9 GERD (gastroesophageal reflux disease) K21.9 Vertigo R42 COPD with emphysema J43.9
--- NOTE | 2020-04-24 20:46 | CT Scan Report ---
CT ANGIOGRAM OF THE CHEST CLINICAL HISTORY: Shortness of breath, hypoxia. Possible pulmonary embolism. Covid positive patient COMPARISON STUDY: 03/21/2020 TECHNIQUE: Following the IV administration of 119 mL of Optiray-320, CT angiogram of the thorax was p erformed from the thoracic inlet to the lung bases utilizing the pulmonary embolus protocol. Images a re reviewed in the axial, sagittal, and coronal planes. IV contrast was administered without complica tion. MIP imaging was performed. A dose lowering technique was utilized adhering to the principles o f ALARA. CT DOSE: 404.27 mGycm FINDINGS: There is mild hepatic steatosis. There are borderline enlarged mediastinal and hilar lymph nodes, likely reactive. The ascending thoracic aorta measures 28 mm. Pulmonary to opacification is somewhat less than optimal. There are no pulmonary artery filling defec ts to indicate acute pulmonary embolism. No pleural effusions are visualized. There is pulmonary emphysema. There are postsurgical changes of a right upper lobectomy. There is a p ersistent 25 x 9 mm right upper lung zone opacity containing central fiducial markers. There is a sta ble 1 cm pleural-based opacity within the right medial lung apex. Since the prior study the patient h as developed subtle peripheral lower lobe groundglass opacities suspicious for a multifocal pneumonia . There is also a new 1 cm right apical nodule, likely infectious/inflammatory IMPRESSION: 1. Suboptimal pulmonary arterial opacification but no evidence of acute pulmonary embolism 2. Postsurgical changes are prior left upper lobectomy 3. Pulmonary emphysema 4. Interval development of subtle peripheral lower lobe groundglass opacity suspicious for a multifoc al pneumonia 5. Stable right upper lobe nodules ACT 112: Negative or not required by law. Electronically signed by: Lamonte Lyles M.D. 04/24/2020 8:45 PM
[2020-04-24 20:49] LABS: Mucus Urine Present (None Prsent)
[2020-04-24] MEDS ORDERED: INFLUENZA VIRUS QUAD VACCINE 0.5 ML SYR IM ONE (23:29)
[2020-04-24] MEDS ORDERED: INFLUENZA ADMINISTRATION CHARGE ONE (23:29)
[2020-04-24] MEDS ORDERED: ACETAMINOPHEN 325 MG TAB PO PRN (23:30)
[2020-04-24] MEDS ORDERED: MAGNESIUM HYDROXIDE SUSP 30 ML UDC PO PRN (23:30)
[2020-04-24] MEDS ORDERED: ALUMINUM/MAGNESIUM SUSP 30 ML UDC PO PRN (23:30)
[2020-04-24] MEDS ORDERED: ONDANSETRON INJ 2 MG/ML 2 ML VIAL IV PRN (23:30)
[2020-04-24] MEDS ORDERED: MECLIZINE 12.5 MG TAB PO PRN (23:30)
[2020-04-25] MEDS: ALBUTEROL HFA 8 GM INHALER INH SCH ×2 (03:21→06:50)
[2020-04-25] MEDS ORDERED: ZINC SULFATE 220 MG CAPSULE PO SCH (09:00)
[2020-04-25] MEDS ORDERED: ALBUTEROL HFA 8 GM INHALER INH PRN (09:09)
[2020-04-25] MEDS: dexAMETHasone 6 MG in SYRINGE 0 ML IV SCH (09:33)
[2020-04-25] MEDS: AZITHROMYCIN 500 MG in DEXTROSE 5% 250 ML IV SCH (09:33)
[2020-04-25] MEDS: UMECLIDINIUM BROMIDE 62.5MCG/BLISTER 7 PUFFS/INHALER INH SCH (09:36)
[2020-04-25] MEDS: FLUTICASONE/VILANTEROL 200/25MCG 14 PUFFS/INHALER INH SCH (09:36)
[2020-04-25] MEDS: CHOLECALCIFEROL 1,000 UNITS 25 MCG TAB PO SCH ×2 (09:37→20:18)
[2020-04-25] MEDS: MULTIVITAMIN TAB PO SCH (09:37)
[2020-04-25] MEDS: FLUoxetine HCL 10 MG CAP PO SCH (09:37)
[2020-04-25] MEDS: PANTOprazole 40 MG TAB PO SCH (09:37)
[2020-04-25] MEDS: ZINC SULFATE 220 MG CAPSULE PO SCH (09:41)
[2020-04-25 12:26] LABS: BUN Creatinine Ratio 21.8 (10-20); Calcium 9.2 mg/dl (8.5-10.1); Creatinine Clr Calc Pharmacy 93.8 ml/min; Est GFR (African American) 117.1; Potassium 2.9 mmol/L (3.5-5.1)
--- NOTE | 2020-04-25 16:00 | Electrocardiogram Report ---
Test Reason : Blood Pressure : / mmHG Vent. Rate : 067 BPM Atrial Rate : 067 BPM P-R Int : 148 ms QRS Dur : 104 ms QT Int : 404 ms P-R-T Axes : 038 043 046 degrees QTc Int : 426 ms Poor data quality, interpretation may be adversely affected Normal sinus rhythm Normal ECG When compared with ECG of 31-MAR-2015 10:16, No significant change was found Confirmed by Bong Morillo ([id number]) on 04/25/2020 3:59:49 PM Referred By: Jennifer Méndez Confirmed By:Bong Morillo
--- NOTE | 2020-04-25 16:34 | Hospitalist Progress Note ---
Date of Service April 25, 2020 Assessment & Plan (1) Pneumonia due to COVID-19 virus: Place on dexamethasone 6 mg IV every morning, day 2 Ventolin HFA 2 puffs 4 times daily, every 2 hours as needed Zinc sulfate 220 mg p.o. 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- Continue fluticasone-Vilanterol, and tiotropium bromide she says she had a prior neoplasm in left upper lobe treated with lobectomy now with re-ocrrence in right upper lobe, as treated with radiation (5) Depression: Continue fluoxetine (6) GERD (gastroesophageal reflux disease): Change omeprazole to pantoprazole (7) Vertigo: Continue as needed meclizine (8) COPD with emphysema: See above Admission and Anticipated Discharge Date Admission Date: April 24, 2020 Subjective patient doing well, only requiring 0.5L nasal canula, no distress, no wheezing, no cough, no fever eating and drinking better reviewed chart and lab work discussed trying to wean off oxygen, once on room air she can go home K low at 2.9, Cr 0.5 Review of Systems Review of Systems: All systems reviewed & are unremarkable except as noted in Subjective Constitutional: + fatigue; no fever, no sweats and no weakness Respiratory: + dyspnea on exertion; no cough and no dyspnea Cardiovascular: no chest pain and no edema Gastrointestinal: no abdominal pain, no nausea, no vomiting, no constipation and no diarrhea/loose stools Physical Exam Constitutional: WD/WN, vitals as above no acute distress Neck: trachea midline, no thyromegaly Respiratory: normal respiratory effort, lungs clear to auscultation Cardiovascular: RRR, no murmur, no edema Gastrointestinal (Abdomen): normal bowel sounds, soft, nontender, no hepatosplenomegaly Musculoskeletal: no cyanosis or clubbing, extremities motor strength 5/5 Skin: no rashes, warm and dry Neurologic: patellar DTR's 2+ bilat, sensation intact and PERRL, EOMI, accommodation nl, no face palsy, no dysarthria Psychiatric: A+Ox3, euthymic affect Lymphatic: no cervical or axillary lymphadenopathy Results & Data Results & Data ([facility]) Vital Signs (Past 12 Hours) Vital Signs Temp Pulse Pulse Resp BP Pulse Ox 04/25/20 15:58 36.8 C 69 20 99/61 L 92 04/25/20 11:56 36.9 C 67 18 118/74 92 04/25/20 07:44 36.6 C 68 18 115/75 91 04/25/20 07:00 61 04/25/20 06:50 69 16 94 Laboratory Results Laboratory Results - last 24 hr 04/24/20 04/24/20 04/24/20 17:36 17:36 17:36 WBC RBC Hgb Hct MCV MCH MCHC RDW Std Deviation RDW Coeff of [place] Plt Count MPV Immature Gran % (Auto) Neut % (Auto) Lymph % (Auto) [place] % (Auto) Eos % (Auto) Baso % (Auto) Neut # (Auto) Lymph # (Auto) [place] # (Auto) Eos # (Auto) Baso # (Auto) Immature Gran # (Auto) PT 11.1 INR 1.1 APTT 23.9 PTT Ratio 0.9 D-Dimer 540 H* Sodium 140 Potassium 2.9 L Chloride 102 Carbon Dioxide 30 Anion Gap 8.0 BUN 15 Creatinine 0.59 L Est Cr Clr Drug Dosing 84.3 Est GFR ( Amer) 113.1 Est GFR (Non-Af Amer) 97.5 BUN/Creatinine Ratio 25.0 H Glucose 85 Lactate Calcium 9.1 Total Bilirubin 0.5 AST 68 H ALT 74 Alkaline Phosphatase 103 Troponin I < 0.015 Total Protein 7.9 Albumin 3.1 L Globulin 4.8 H Albumin/Globulin Ratio 0.6 L Urine Color Urine Appearance Urine pH Ur Specific [place] Urine Protein Urine Glucose (UA) Urine Ketones Urine Blood Urine Nitrite Urine Bilirubin Urine Urobilinogen Ur Leukocyte Esterase Urine WBC (Auto) Urine RBC (Auto) U Hyaline Cast (Auto) U Epithel Cells (Auto) Urine Bacteria (Auto) Ur Renal Epithelial Cell Urine Mucus COVID-19 Eval Order Hepatitis C Ab Screen SARS-CoV-2, RNA, NAAT Blood Type A Positive Antibody Screen NEGATIVE 04/24/20 04/24/20 04/24/20 17:36 17:36 17:36 WBC 6.40 RBC 3.76 L Hgb 11.5 L Hct 35.4 L MCV 94.1 MCH 30.6 MCHC 32.5 RDW Std Deviation 45.3 RDW Coeff of [place] 13.1 Plt Count 395 MPV 9.1 Immature Gran % (Auto) 0.0 Neut % (Auto) 67.3 Lymph % (Auto) 20.3 [place] % (Auto) 10.2 Eos % (Auto) 1.9 Baso % (Auto) 0.3 Neut # (Auto) 4.31 Lymph # (Auto) 1.30 [place] # (Auto) 0.65 H Eos # (Auto) 0.12 Baso # (Auto) 0.02 Immature Gran # (Auto) 0.00 PT INR APTT PTT Ratio D-Dimer Sodium Potassium Chloride Carbon Dioxide Anion Gap BUN Creatinine Est Cr Clr Drug Dosing Est GFR ( Amer) Est GFR (Non-Af Amer) BUN/Creatinine Ratio Glucose Lactate 1.4 Calcium Total Bilirubin AST ALT Alkaline Phosphatase Troponin I Total Protein Albumin Globulin Albumin/Globulin Ratio Urine Color Urine Appearance Urine pH Ur Specific [place] Urine Protein Urine Glucose (UA) Urine Ketones Urine Blood Urine Nitrite Urine Bilirubin Urine Urobilinogen Ur Leukocyte Esterase Urine WBC (Auto) Urine RBC (Auto) U Hyaline Cast (Auto) U Epithel Cells (Auto) Urine Bacteria (Auto) Ur Renal Epithelial Cell Urine Mucus COVID-19 Eval Order Hepatitis C Ab Screen Neg SARS-CoV-2, RNA, NAAT Blood Type Antibody Screen 04/24/20 04/24/20 04/24/20 19:54 21:38 21:38 WBC RBC Hgb Hct MCV MCH MCHC RDW Std Deviation RDW Coeff of [place] Plt Count MPV Immature Gran % (Auto) Neut % (Auto) Lymph % (Auto) [place] % (Auto) Eos % (Auto) Baso % (Auto) Neut # (Auto) Lymph # (Auto) [place] # (Auto) Eos # (Auto) Baso # (Auto) Immature Gran # (Auto) PT INR APTT PTT Ratio D-Dimer Sodium Potassium Chloride Carbon Dioxide Anion Gap BUN Creatinine Est Cr Clr Drug Dosing Est GFR ( Amer) Est GFR (Non-Af Amer) BUN/Creatinine Ratio Glucose Lactate Calcium Total Bilirubin AST ALT Alkaline Phosphatase Troponin I Total Protein Albumin Globulin Albumin/Globulin Ratio Urine Color Dark Yellow Urine Appearance Clear Urine pH 5.5 Ur Specific [place] 1.031 H Urine Protein Trace H Urine Glucose (UA) Negative Urine Ketones 3+ H Urine Blood Negative Urine Nitrite Negative Urine Bilirubin Negative Urine Urobilinogen Negative Ur Leukocyte Esterase Negative Urine WBC (Auto) 5-10 H Urine RBC (Auto) 0-4 U Hyaline Cast (Auto) 10-30 H U Epithel Cells (Auto) >30 H Urine Bacteria (Auto) Negative Ur Renal Epithelial Cell Not Reportable Urine Mucus Present A COVID-19 Eval [facility] Hepatitis C Ab Screen SARS-CoV-2, RNA, NAAT POSITIVE A* Blood Type Antibody Screen 04/25/20 11:07 WBC RBC Hgb Hct MCV MCH MCHC RDW Std Deviation RDW Coeff of [place] Plt Count MPV Immature Gran % (Auto) Neut % (Auto) Lymph % (Auto) [place] % (Auto) Eos % (Auto) Baso % (Auto) Neut # (Auto) Lymph # (Auto) [place] # (Auto) Eos # (Auto) Baso # (Auto) Immature Gran # (Auto) PT INR APTT PTT Ratio D-Dimer Sodium 141 Potassium 2.9 L Chloride 105 Carbon Dioxide 28 Anion Gap 8.0 BUN 12 Creatinine 0.53 L Est Cr Clr Drug Dosing 93.8 Est GFR ( Amer) 117.1 Est GFR (Non-Af Amer) 101.0 BUN/Creatinine Ratio 21.8 H Glucose 121 H Lactate Calcium 9.2 Total Bilirubin AST ALT Alkaline Phosphatase Troponin I Total Protein Albumin Globulin Albumin/Globulin Ratio Urine Color Urine Appearance Urine pH Ur Specific [place] Urine Protein Urine Glucose (UA) Urine Ketones Urine Blood Urine Nitrite Urine Bilirubin Urine Urobilinogen Ur Leukocyte Esterase Urine WBC (Auto) Urine RBC (Auto) U Hyaline Cast (Auto) U Epithel Cells (Auto) Urine Bacteria (Auto) Ur Renal Epithelial Cell Urine Mucus COVID-19 Eval Order Hepatitis C Ab Screen SARS-CoV-2, RNA, NAAT Blood Type Antibody Screen Medications Administered Current Inpatient Medications Acetaminophen (Acetaminophen 325 Mg Tab) 650 mg PO Q4H PRN PRN Reason: pain/fever Stop: 05/24/20 23:29 Al Hydrox/Mg Hydrox/Simethicone (Aluminum/Magnesium Susp 30 Ml Udc) 30 ml PO Q6H PRN PRN Reason: Dyspepsia Stop: 05/24/20 23:29 Albuterol (Albuterol Hfa 8 Gm Inhaler) 2 puffs INH Q4 PRN PRN Reason: Shortness Of Breath Or Wheezing Stop: 05/25/20 09:08 Fluoxetine HCl (Fluoxetine Hcl 10 Mg Cap) 10 mg PO DAILY [facility] Stop: 05/25/20 08:59 Last Admin: 04/25/20 09:37 Dose: 10 mg Documented by: Fluticasone/Vilanterol (Fluticasone/Vilanterol 200/25mcg 14 Puffs/Inhaler) 1 puffs INH DAILY [facility] Stop: 05/25/20 08:59 Last Admin: 04/25/20 09:36 Dose: 1 puffs Documented by: Dexamethasone 6 mg/ Syringe 1.5 mls @ 1 mls/min IV QAM [facility] Stop: 05/04/20 09:02 Last Admin: 04/25/20 09:33 Dose: 1 mls/min Documented by: Azithromycin 500 mg/ Dextrose 255 mls @ 125 mls/hr IV QAM [facility] Stop: 05/02/20 08:59 Last Infusion: 04/25/20 11:43 Dose: Infused Documented by: Magnesium Hydroxide (Magnesium Hydroxide Susp 30 Ml Udc) 30 ml PO Q6H PRN PRN Reason: Constipation Stop: 05/24/20 23:29 Meclizine HCl (Meclizine 12.5 Mg Tab) 12.5 mg PO TID PRN PRN Reason: dizzyness Stop: 05/24/20 23:29 Multivitamins (Multivitamin Tab) 1 tab PO DAILY [facility] Stop: 05/25/20 08:59 Last Admin: 04/25/20 09:37 Dose: 1 tab Documented by: Ondansetron HCl (Ondansetron Inj 2 Mg/Ml 2 Ml Vial) 4 mg IV Q6H PRN PRN Reason: Nausea Stop: 05/24/20 23:29 Pantoprazole Sodium (Pantoprazole 40 Mg Tab) 40 mg PO DAILY [facility] Stop: 05/25/20 08:59 Last Admin: 04/25/20 09:37 Dose: 40 mg Documented by: Umeclidinium [place] (Umeclidinium [place] 62.5mcg/Blister 7 Puffs/Inhaler) 1 puffs INH DAILY [facility] Stop: 05/25/20 08:59 Last Admin: 04/25/20 09:36 Dose: 1 puffs Documented by: Vitamin D (Cholecalciferol 1,000 Units 25 Mcg Tab) 2,000 units PO BID [facility] Stop: 05/25/20 08:59 Last Admin: 04/25/20 09:37 Dose: 2,000 units Documented by: Zinc Sulfate (Zinc Sulfate 220 Mg Capsule) 220 mg PO QAM [facility] Stop: 05/25/20 08:59 Last Admin: 04/25/20 09:41 Dose: 220 mg Documented by: PG Care Time/CCT Total # of Minutes Spent Total Time Spent with Patient: Total time spent is greater than 50% in coordination of care (as documented) at patient's floor/unit and/or counseling patient: Coding Level of Care Code 58054 Subseq Hosp Care Lvl 2 Diagnoses Pneumonia due to COVID-19 virus U07.1; J12.89 Hypoxia R09.02 Hypokalemia E87.6 Primary cancer of right upper lobe of lung C34.11 Depression F32.9 GERD (gastroesophageal reflux disease) K21.9 Vertigo R42 COPD with emphysema J43.9
[2020-04-26 08:13] LABS: Hematocrit (blood only) 37.5 % (37-47); Hemoglobin 12.4 g/dL (12.0-16.0); Mean Corpuscular Hemoglobin 31.1 pg (25-34); Mean Corpuscular Hgb Conc 33.1 g/dL (32-36); Mean Platelet Volume 9.3 fL (7.4-10.4); Platelet Count 385 K/uL (130-400); RDW Coefficient of Variation 13.2 % (11.5-14.5); RDW Standard Deviation 45.8 fL (36.4-46.3); Red Blood Count 3.99 M/uL (4.2-5.4); White Blood Count 5.33 K/uL (4.8-10.8)
[2020-04-26 08:19] LABS: BUN Creatinine Ratio 21.6 (10-20); Calcium 9.2 mg/dl (8.5-10.1); Creatinine Clr Calc Pharmacy 93.8 ml/min; Est GFR (African American) 117.1
[2020-04-26] MEDS: dexAMETHasone 6 MG in SYRINGE 0 ML IV SCH (09:11)
[2020-04-26] MEDS: CHOLECALCIFEROL 1,000 UNITS 25 MCG TAB PO SCH ×2 (09:12→21:34)
[2020-04-26] MEDS: MULTIVITAMIN TAB PO SCH (09:12)
[2020-04-26] MEDS: PANTOprazole 40 MG TAB PO SCH (09:12)
[2020-04-26] MEDS: ZINC SULFATE 220 MG CAPSULE PO SCH (09:12)
[2020-04-26] MEDS: FLUoxetine HCL 10 MG CAP PO SCH (09:12)
[2020-04-26] MEDS: AZITHROMYCIN 500 MG in DEXTROSE 5% 250 ML IV SCH (09:13)
[2020-04-26] MEDS: FLUTICASONE/VILANTEROL 200/25MCG 14 PUFFS/INHALER INH SCH (09:13)
[2020-04-26] MEDS: UMECLIDINIUM BROMIDE 62.5MCG/BLISTER 7 PUFFS/INHALER INH SCH (09:20)
--- NOTE | 2020-04-26 09:22 | Hospitalist Progress Note ---
Date of Service April 26, 2020 Assessment & Plan (1) Pneumonia due to COVID-19 virus: Place on dexamethasone 6 mg IV every morning, day 3 Ventolin HFA 2 puffs 4 times daily, every 2 hours as needed Zinc sulfate 220 mg p.o. 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- Continue fluticasone-Vilanterol, and tiotropium bromide she says she had a prior neoplasm in left upper lobe treated with lobectomy now with re-ocrrence in right upper lobe, as treated with radiation (5) Depression: Continue fluoxetine (6) GERD (gastroesophageal reflux disease): Change omeprazole to pantoprazole (7) Vertigo: Continue as needed meclizine (8) COPD with emphysema: See above Admission and Anticipated Discharge Date Admission Date: April 24, 2020 Subjective patient stable on 0.5L, turned oxygen off and saturations 94% at rest admits to a lot of dyspnea on exertion, walking to bathroom discussed getting a two step tomorrow and trying to discharge home, she agreed eating all of her food, suggested eating a banana for potassium labs show K is low at 3.0, otherwise Cr and electrolytes stable no fever/chills, no sweats, no GI symptoms, she is motivated to go home tomorrow Review of Systems Review of Systems: All systems reviewed & are unremarkable except as noted in Subjective Constitutional: + fatigue and + weakness; no fever, no chills and no sweats Respiratory: + cough and + dyspnea on exertion; no dyspnea Cardiovascular: no chest pain and no edema Gastrointestinal: no abdominal pain, no nausea, no vomiting, no constipation and no diarrhea/loose stools Physical Exam Constitutional: WD/WN, vitals as above no acute distress Neck: trachea midline, no thyromegaly Respiratory: normal respiratory effort, lungs clear to auscultation Cardiovascular: RRR, no murmur, no edema Gastrointestinal (Abdomen): normal bowel sounds, soft, nontender, no hepatosplenomegaly Musculoskeletal: no cyanosis or clubbing, extremities motor strength 5/5 Skin: no rashes, warm and dry Neurologic: patellar DTR's 2+ bilat, sensation intact and PERRL, EOMI, accommodation nl, no face palsy, no dysarthria Psychiatric: A+Ox3, euthymic affect Lymphatic: no cervical or axillary lymphadenopathy Results & Data Results & Data ([facility]) Vital Signs (Past 12 Hours) Vital Signs Temp Pulse Pulse Resp BP Pulse Ox 04/26/20 07:48 36.4 C L 60 18 107/72 94 04/26/20 03:25 36.7 C 63 17 138/76 95 04/26/20 00:38 36.9 C 58 L 17 131/74 93 04/26/20 00:15 62 Laboratory Results Laboratory Results - last 24 hr 04/25/20 04/26/20 04/26/20 11:07 07:10 07:10 WBC 5.33 RBC 3.99 L Hgb 12.4 Hct 37.5 MCV 94.0 MCH 31.1 MCHC 33.1 RDW Std Deviation 45.8 RDW Coeff of Raza 13.2 Plt Count 385 MPV 9.3 Sodium 141 143 Potassium 2.9 L 3.0 L Chloride 105 107 Carbon Dioxide 28 29 Anion Gap 8.0 7.0 BUN 12 11 Creatinine 0.53 L 0.53 L Est Cr Clr Drug Dosing 93.8 93.8 Est GFR ( Amer) 117.1 117.1 Est GFR (Non-Af Amer) 101.0 101.0 BUN/Creatinine Ratio 21.8 H 21.6 H Glucose 121 H 91 Calcium 9.2 9.2 Medications Administered Current Inpatient Medications Acetaminophen (Acetaminophen 325 Mg Tab) 650 mg PO Q4H PRN PRN Reason: pain/fever Stop: 05/24/20 23:29 Al Hydrox/Mg Hydrox/Simethicone (Aluminum/Magnesium Susp 30 Ml Udc) 30 ml PO Q6H PRN PRN Reason: Dyspepsia Stop: 05/24/20 23:29 Albuterol (Albuterol Hfa 8 Gm Inhaler) 2 puffs INH Q4 PRN PRN Reason: Shortness Of Breath Or Wheezing Stop: 05/25/20 09:08 Fluoxetine HCl (Fluoxetine Hcl 10 Mg Cap) 10 mg PO DAILY [facility] Stop: 05/25/20 08:59 Last Admin: 04/25/20 09:37 Dose: 10 mg Documented by: Fluticasone/Vilanterol (Fluticasone/Vilanterol 200/25mcg 14 Puffs/Inhaler) 1 puffs INH DAILY [facility] Stop: 05/25/20 08:59 Last Admin: 04/25/20 09:36 Dose: 1 puffs Documented by: Dexamethasone 6 mg/ Syringe 1.5 mls @ 1 mls/min IV QAM [facility] Stop: 05/04/20 09:02 Last Admin: 04/25/20 09:33 Dose: 1 mls/min Documented by: Azithromycin 500 mg/ Dextrose 255 mls @ 125 mls/hr IV QAM [facility] Stop: 05/02/20 08:59 Last Infusion: 04/25/20 11:43 Dose: Infused Documented by: Magnesium Hydroxide (Magnesium Hydroxide Susp 30 Ml Udc) 30 ml PO Q6H PRN PRN Reason: Constipation Stop: 05/24/20 23:29 Meclizine HCl (Meclizine 12.5 Mg Tab) 12.5 mg PO TID PRN PRN Reason: dizzyness Stop: 05/24/20 23:29 Multivitamins (Multivitamin Tab) 1 tab PO DAILY [facility] Stop: 05/25/20 08:59 Last Admin: 04/25/20 09:37 Dose: 1 tab Documented by: Ondansetron HCl (Ondansetron Inj 2 Mg/Ml 2 Ml Vial) 4 mg IV Q6H PRN PRN Reason: Nausea Stop: 05/24/20 23:29 Pantoprazole Sodium (Pantoprazole 40 Mg Tab) 40 mg PO DAILY [facility] Stop: 05/25/20 08:59 Last Admin: 04/25/20 09:37 Dose: 40 mg Documented by: Potassium Chloride (Potassium Chloride Crtab 20 Meq Tabcr) 20 meq PO TID [facility] Stop: 05/26/20 08:59 Umeclidinium [place] (Umeclidinium [place] 62.5mcg/Blister 7 Puffs/Inhaler) 1 puffs INH DAILY [facility] Stop: 05/25/20 08:59 Last Admin: 04/25/20 09:36 Dose: 1 puffs Documented by: Vitamin D (Cholecalciferol 1,000 Units 25 Mcg Tab) 2,000 units PO BID [facility] Stop: 05/25/20 08:59 Last Admin: 04/25/20 20:18 Dose: 2,000 units Documented by: Zinc Sulfate (Zinc Sulfate 220 Mg Capsule) 220 mg PO QAM [facility] Stop: 05/25/20 08:59 Last Admin: 04/25/20 09:41 Dose: 220 mg Documented by: PG Care Time/CCT Total # of Minutes Spent Total Time Spent with Patient: Total time spent is greater than 50% in coordination of care (as documented) at patient's floor/unit and/or counseling patient: Coding Level of Care Code 22862 Subseq Hosp Care Lvl 2 Diagnoses Pneumonia due to COVID-19 virus U07.1; J12.89 Hypoxia R09.02 Hypokalemia E87.6 Primary cancer of right upper lobe of lung C34.11 Depression F32.9 GERD (gastroesophageal reflux disease) K21.9 Vertigo R42 COPD with emphysema J43.9
[2020-04-26] MEDS: POTASSIUM CHLORIDE CRTAB 20 MEQ TABCR PO SCH ×3 (09:26→21:34)
[2020-04-27 08:17] VITALS: BP 123/74; TEMP 98.4
[2020-04-27] MEDS: UMECLIDINIUM BROMIDE 62.5MCG/BLISTER 7 PUFFS/INHALER INH SCH (08:50)
[2020-04-27] MEDS: FLUTICASONE/VILANTEROL 200/25MCG 14 PUFFS/INHALER INH SCH (08:50)
[2020-04-27] MEDS: POTASSIUM CHLORIDE CRTAB 20 MEQ TABCR PO SCH ×2 (08:51→15:54)
[2020-04-27] MEDS: dexAMETHasone 6 MG in SYRINGE 0 ML IV SCH (08:51)
[2020-04-27] MEDS: MULTIVITAMIN TAB PO SCH (08:51)
[2020-04-27] MEDS: PANTOprazole 40 MG TAB PO SCH (08:51)
[2020-04-27] MEDS: CHOLECALCIFEROL 1,000 UNITS 25 MCG TAB PO SCH (08:52)
[2020-04-27] MEDS: ZINC SULFATE 220 MG CAPSULE PO SCH (08:52)
[2020-04-27] MEDS: FLUoxetine HCL 10 MG CAP PO SCH (08:52)
[2020-04-27 10:27] LABS: BUN Creatinine Ratio 19.1 (10-20); Calcium 9.3 mg/dl (8.5-10.1); Creatinine Clr Calc Pharmacy 63.7 ml/min; Est GFR (African American) 93.8; Est GFR (Non-African American) 80.9; Potassium 3.2 mmol/L (3.5-5.1)
[2020-04-27] MEDS: AZITHROMYCIN 500 MG in DEXTROSE 5% 250 ML IV SCH (10:39)
[2020-04-27 12:19] VITALS: PULSE 60; O2SAT 90
--- NOTE | 2020-04-27 14:03 | Ultrasound Report ---
US venous doppler LE RT HISTORY: 64 years-old Female pain behind knee, swalling, COVID acute pain and swelling of the right lower extremity COMPARISON: None TECHNIQUE: Multiple real-time sonographic images of the right lower extremity venous structures were obtained assessing grayscale appearance, color and spectral flow. FINDINGS: Partially occlusive thrombus of the popliteal vein extends into one of the duplicated posterior tibia l veins. The remaining deep venous structures of the lower extremity appear unremarkable. IMPRESSION: Partially occlusive deep venous thrombosis as above. ACT 112: Negative or not required by law. The above report was generated using voice recognition software. It may contain grammatical, syntax o r spelling errors. Electronically signed by: North Hartmann M.D. 04/27/2020 2:02 PM
[2020-04-27] MEDS ORDERED: APIXABAN 5 MG TABLET PO STA (14:26)
[2020-04-27] MEDS ORDERED: RIVAROXABAN 15 MG TAB PO ONE (14:30)
--- NOTE | 2020-04-28 10:35 | Discharge Summary ---
Date of Service April 27, 2020 Admission HPI Per Admitting Provider The patient is a 64-year-old female with a past medical history including primary cancer of right upper lobe of lung, COPD, depression, vertigo and GERD. Her symptoms began approximately 10 days ago, and she had initial testing performed that was COVID-19 PCR positive on 04/17/2020. Repeat RNA, NAAT testing was positive in the ED tonight. Pulse oximetry was noted to be 89% on room air, and CTA scan of chest that was performed due to high positive D-dimer, as it was negative for PE, but did show multifocal pneumonia. Principal Diagnosis COVID 19 pneumonia with acute hypoxic respiratory failure Discharge Exam Constitutional WD/WN, vitals as above no acute distress Neck trachea midline, no thyromegaly Respiratory normal respiratory effort, lungs clear to auscultation Cardiovascular RRR, no murmur, no edema Extremities: + calf tenderness (right calf, no swelling, skin not tense) Gastrointestinal (Abdomen) normal bowel sounds, soft, nontender, no hepatosplenomegaly Musculoskeletal no cyanosis or clubbing, extremities motor strength 5/5 Skin no rashes, warm and dry Neurologic patellar DTR's 2+ bilat, sensation intact and PERRL, EOMI, accommodation nl, no face palsy, no dysarthria Psychiatric A+Ox3, euthymic affect Lymphatic no cervical or axillary lymphadenopathy Discharge Data Allergies Allergy/AdvReac Type Severity Reaction Status Date / Time No Known Allergies Allergy Verified 04/24/20 19:20 Consultations 04/24/20 19:12 ED Decision to Admit Stat Ordered Studies 04/24/20 19:11 CT angio chest PE protocol Stat 04/27/20 12:23 US venous doppler LE RT Stat Hospital Course (1) Pneumonia due to COVID-19 virus: Place on dexamethasone 6 mg IV every morning, day 4 Ventolin HFA 2 puffs 4 times daily, every 2 hours as needed Zinc sulfate 220 mg p.o. every morning titrated down to room air, saturations 94% two step shows no need for home oxygen will send home on dexamethasone 6mg PO daily x 6 more days stay well nourished, well hydrated stay isolated 14 days from initial symptoms (2) Right leg DVT: diagnosed day of discharge, patient c/o right calf pain and pain posterior to knee US showed popliteal DVT, non-occlusive will treat with Eliquis 10mg BID x 7 days then 5mg BID for 3-6 months follow up with PCP (3) Hypoxia: no distress has dyspnea on exertion and likely desaturates but quickly recovers plan for two step: no oxygen needed (4) Hypokalemia: up to 3.4 prescribed KCl 20 daily x 7 days told her to eat bananas (5) Primary cancer of right upper lobe of lung: 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- Continue fluticasone-Vilanterol, and tiotropium bromide she says she had a prior neoplasm in left upper lobe treated with lobectomy now with re-ocrrence in right upper lobe, as treated with radiation (6) Depression: Continue fluoxetine (7) GERD (gastroesophageal reflux disease): Change omeprazole to pantoprazole (8) Vertigo: Continue as needed meclizine (9) COPD with emphysema: See above Total Time Total Time Spent Total Time Spent (In Minutes): 45 minutes Total Time Includes: Examination of the Patient, Discharge Planning, Medication Reconciliation and Communication With Other Providers (spoke with her outpatient pharmacy twice about Xarelto and then Eliquis) Discharge Plan Discharge Items Patient Disposition: Home - Self-Care Reason For Visit: PNEUMONIA DUE TO COVID 19 WITH HYPOXIA Discharge Diagnosis: COVID 19 pneumonia Right leg DVT Condition on Discharge: Good Goals: stay well nourished, well hydrated improve strength and mobility complete course of dexamethasone Activity: Resume your previous activity Non-emergency contact: Primary Care Provider Call non-emergency contact if: you have any medication questions and your symptoms worsen Follow-up/Referrals: Shayan Omer MD [Primary Care Provider] - (Patient will need to call in and schedule 1 week appointment, she will need to provide email address.) Diet: Regular Addtl Attending Provider Instructions: Medications: - DEXAMETHASONE: 6mg daily for 6 more days - ELIQUIS: 10mg twice a day for 7 days then 5mg twice a day indefinitely - POTASSIUM CHLORIDE: 20mEq daily for 7 days COVID 19 pneumonia, acute hypoxic respiratory failure no longer requiring oxygen, passed two step this morning complete 6 more days of dexamethasone say well nourished and well hydrated stay in isolation 14 days from initial symptoms Right leg DVT in popliteal vein (behind the knee) Eliquis 10mg twice a day for 7 days then 5mg twice a day follow up with your PCP for further prescriptions after one month would need to treat for 3-6 months total Pending Studies at Discharge: No Stand-Alone Forms: My [facility], Work/School Release (Inpt), Smoking Cessation Medications and DC Order Prescriptions: New dexamethasone 4 mg tablet 6 mg PO DAILY 6 Days Qty: 9 RF: 0 potassium chloride 20 mEq tablet extended release 20 meq PO DAILY Qty: 7 RF: 0 Eliquis 5 mg tablet 5 mg PO BID Qty: 45 RF: 0 Continued cholecalciferol (vitamin D3) 50 mcg (2,000 unit) capsule 50 mcg PO BID RF: 0 garlic 1,000 mg capsule 1,000 mg PO DAILY RF: 0 omeprazole 20 mg capsule,delayed release(DR/EC) 20 mg PO DAILY RF: 0 meclizine 12.5 mg tablet 12.5 mg PO TID PRN (Reason: dizzyness) RF: 0 fluoxetine 10 mg capsule 10 mg PO DAILY RF: 0 Breo Ellipta 200-25 mcg/dose blister with device 1 inh INH DAILY Qty: 3 RF: 1 Spiriva Respimat 2.5 mcg/actuation mist 2 puff INH DAILY Qty: 3 RF: 1 multivitamin tablet 1 tab PO DAILY RF: 0 albuterol sulfate [Ventolin HFA] 90 mcg/actuation HFA aerosol inhaler 1 puffs INH Q6H PRN (Reason: shortness of breath or wheezing) Qty: 18 RF: 3 Discharge Orders: Discharge Order (Routine); Ordered 04/27/20 Ordered By: Milton Moya/Other Patient Handouts: Understanding Deep Vein Thrombosis, 2019-nCoV, COVID-19 Plasma Donation, DVT Dc, Apixaban oral tablets Admission Data Admit Date/Time: 04/24/20 20:19 Attending Provider: Milton De La Rosa Admit Provider: Marcelino Quiroga Primary Care Provider: Shayan Omer Other Providers: Marcelino Quiroga Other Interventions: Discharge Summary Assessment (RN) Last Done: 04/27/20 12:14 Coding Level of Care Code D/C Day Management >30 mins Diagnoses Pneumonia due to COVID-19 virus U07.1; J12.89 Right leg DVT I82.401 Hypoxia R09.02 Hypokalemia E87.6 Primary cancer of right upper lobe of lung C34.11 Depression F32.9 GERD (gastroesophageal reflux disease) K21.9 Vertigo R42 COPD with emphysema J43.9
== END 2020-04-27 16:07 | disposition home or self-care (01) | DRG 177 ==
LOC: ED 14:52 → 2S 20:19 → SUATTDRO 20:19 → 2S 22:51 → 3N 04-26 09:16